=== PATIENT | male | born 1935 | race Caucasian/White ===

== ENCOUNTER 2021-10-28 00:34 | Emergency (ER) | payer OTHER, SELFPAY ==
[2021-10-28 00:35] VITALS: BP 165/91; PULSE 117; RESP 18; TEMP 36.6; O2SAT 94; BMI 29.2
--- NOTE | 2021-10-28 00:45 | ED_ITS ---
HPI - Altered Mental Status General: Chief Complaint: Altered Mental Status Stated Complaint: AMS Time Seen by Provider: 10/28/21 00:45 History of Present Illness: HPI narrative: Mr. Landrum is an 86-year-old gentleman with history of advanced dementia currently living at home on hospice who presents to the emergency department due to altered mental status. The patient at baseline has of waxing wanting mental status and only recognize his about 50% of the time. Apparently recently he has been declining further with hallucinations and agitation. Per the , via telephone, earlier today the patient was hallucinating and significantly agitated. Additionally he fell multiple times on carpet. He received lorazepam, donepezil, and 2 doses of Seroquel and then was fairly somnolent. His was unable to get him off the floor so she called hospice who recommended calling ambulance. The patient himself denies complaints however reliability is significantly limited. He is mumbling at times and provides no meaningful other history. MD complaint: altered mental status and confusion Onset (ago): day(s) Timing confirmed by: spouse Severity: moderate Consistency of symptoms: Waxing and Waning Context: other Associated symptoms: Reports auditory hallucinations and visual hallucinations Treatments prior to arrival: other Review of Systems General: Reports: ROS unobtainable due to mental status Psych: Reports: visual hallucinations and auditory hallucinations PFS ED PFSH: Medical History Dementia HTN (hypertension) Surgical History No significant past surgical history Social History Household members: spouse Housing: House Physical Exam Const: COMMON NORMALS: alert; negative for patient oriented x3 GENERAL APPEARANCE: cooperative and well developed HENMT: COMMON NORMALS: normocephalic and atraumatic HEAD & SCALP: normocephalic and atraumatic THROAT: posterior oropharynx normal Eye: COMMON NORMALS: conjunctivae normal CONJUNCTIVA: Yes conjunctivae normal SCLERA: sclerae normal Neck/C-Spine: COMMON NORMALS: supple GENERAL: Yes trachea midline Resp: COMMON NORMALS: normal respiratory effort EFFORT & INSPECTION: Yes able to speak in complete sentences Cardio: COMMON NORMALS: regular rate and regular rhythm RATE: regular rate RHYTHM: regular rhythm GI: COMMON NORMALS: Soft to palpation PALPATION: Yes Soft to palpation and No Tenderness to palpation present (GI) PERCUSSION: normal to percussion Extremity: GENERAL: Yes normal exam except as noted and No edema Neuro: COMMON NORMALS: moves all extremities; negative for patient oriented x3 SENSORIUM/ORIENTATION: Yes alert and Yes Orientation impaired Psych: MEMORY/COGNITION: Yes memory grossly impaired and Yes cognition grossly intact Course ED course: - Patient was seen and evaluated by me at bedside - Patient placed on cardiac monitors, IV access obtained - Initial evaluation notable for exam as above - Labs notable for no leukocytosis. Metabolic panel with hypokalemia, replenishment ordered. Urinalysis with bacteria though no white blood cells and no epithelial contamination which is somewhat atypical. - Imaging notable for possible pneumonia - Antibiotics ordered - Upon serial reexamination after treatment the patient was improved - Based on patient history, evaluation, labs, and imaging as interpreted the most likely cause of the patient's condition is multifactorial, likely progression of underlying severe dementia though may be mild infection contributing which we treated with antibiotics - The results of ED evaluation were discussed with the patient including prescriptions and/or symptomatic cares (if applicable) including appropriate and responsible use, followup plan, and return precautions. These were reiterated and paperwork given to the patient. - Patient discharged in satisfactory condition. Note: Click bubbles or prepopulated merlos in note writing are used for assistance with data collection and billing and are inherently more limited than narrative and other text portions of this note. Please use narrative for additional clinical history and defer to narrative/free test for any case of contradictory information. If information appears in only free text or click bubble it should be considered present or absent as reported. Please contact note ad copy writer for clarifications of clinical information or contradictory information. MDM is a brief summary, contradictory or erroneous seeming information should be clarified and full note should be reviewed. Vital Signs: Vital signs: Vital Signs Temperature 97.8 F 10/28/21 07:08 Pulse Rate 104 H 10/28/21 07:08 Respiratory Rate 18 10/28/21 07:08 Blood Pressure 190/98 10/28/21 07:08 Pulse Oximetry 95 10/28/21 07:08 MDM - Altered Mental Status MDM Narrative: Medical decision making narrative: 86-year-old gentleman presenting to the emergency department for evaluation of mental status change. Challenging situation, the patient is on hospice for end-stage dementia though still living at home. Basically, per the 's understanding, he was sent here for stabilization of behavioral issues with plan to return in the morning to home. He has been calm cooperative though clearly demented. He has never been here before and given behavioral changes certainly warranted medical evaluation. Heart rate improved with fluids. Mild electrolyte derangements including hypokalemia which was replenished. Chest x-ray notable for pneumonia and small amount of bacteria in urine. Infection may be responsible for some behavior ch anges though I suspect this is not too far off from baseline. I believe overall clinical appearance in combination with laboratory studies and clinical history that patient will gain more benefit from oral treatment of antibiotics at home rather than admission to the hospital. Medical Records: Attestation: I reviewed the patient's medical records. Lab Data: Attestation: I reviewed the patient's lab results. Labs: Lab Results 10/28/21 10/28/21 10/28/21 01:35 01:35 01:35 WBC 8.7 10^3/uL 10^3/ uL (4.0-10.0) RBC 5.45 10^6/uL H 10 ^6/uL (4.1-5.3) Hgb 14.8 g/dL g/dL (11.7-16.6) Hct 45.7 % % (42.0-52.0) MCV 83.9 fl fl (80-94) MCH 27.2 pg L pg (28.0-34.0) MCHC 32.4 g/dL g/dL (30.0-36.0) RDW 14.2 % % (12.1-15.1) Plt Count 139 10^3/cmm 10^3 /cmm (130-400) MPV 12.1 fL H fL (7.4-10.4) Neut % (Auto) 73.1 % % Lymph % (Auto) 17.7 % % [place] % (Auto) 7.3 % % Eos % (Auto) 1.1 % % Baso % (Auto) 0.6 % % Neut # (Auto) 6.36 10^3/uL 10^3 /uL (1.8-7.7) Lymph # (Auto) 1.5 10^3/uL 10^3/ uL (0.8-4.8) [place] # (Auto) 0.6 10^3/uL 10^3/ uL (0.2-0.9) Eos # (Auto) 0.1 10^3/uL 10^3/ uL (0.0-0.8) Baso # (Auto) 0.1 10^3/uL 10^3/ uL (0.0-0.1) Nucleated RBC % (a uto) 0 % % Nucleated RBCs # 0.0 /100WBC /100W BC Sodium 145 mmol/L mmol/L (136-145) Potassium 3.0 mmol/L L mmol /L (3.5-5.1) Chloride 110 mmol/L H mmol /L (98-107) Carbon Dioxide 20 mmol/L L mmol/ L (22-29) Anion Gap 18.0 (5-19) BUN 9 mg/dL mg/dL (8-23) Creatinine 0.7 mg/dL mg/dL (0.7-1.2) GFR Calculation Not Reportable Glucose 95 mg/dL mg/dL (65-115) POC Glucose Calculated Osmolal ity 298 mOsm/kg H mOs m/kg (285-295) Calcium 7.6 mg/dL L mg/dL (8.5-10.5) Total Bilirubin 0.6 mg/dL mg/dL (0.15-1.2) AST 17 U/L U/L (0-40) ALT 12 U/L U/L (0-41) Alkaline Phosphata se 60 IU/L IU/L (40-130) Total Protein 5.4 g/dL L g/dL (6.6-8.7) Albumin 3.5 g/dL g/dL (3.5-5.2) Globulin 1.9 g/dL g/dL (1.3-4.6) Procalcitonin 0.05 ng/mL ng/mL (0-0.5) Urine Color Urine Appearance Urine pH Ur Specific Gravit y Urine Protein Urine Glucose (UA) Urine Ketones Urine Blood Urine Nitrate Urine Bilirubin Prot Sulfosalicyli c Acd Urine Urobilinogen Ur Leukocyte Yeimi ase Urine RBC Urine WBC Ur Squamous Epith Cells Amorphous Sediment Urine Bacteria SARS-CoV-2 Ag (Rap id) 10/28/21 10/28/21 10/28/21 01:46 01:49 02:28 WBC RBC Hgb Hct MCV MCH MCHC RDW Plt Count MPV Neut % (Auto) Lymph % (Auto) [place] % (Auto) Eos % (Auto) Baso % (Auto) Neut # (Auto) Lymph # (Auto) [place] # (Auto) Eos # (Auto) Baso # (Auto) Nucleated RBC % (a uto) Nucleated RBCs # Sodium Potassium Chloride Carbon Dioxide Anion Gap BUN Creatinine GFR Calculation Glucose POC Glucose 103 mg/dL mg/dL (70-110) Calculated Osmolal ity Calcium Total Bilirubin AST ALT Alkaline Phosphata se Total Protein Albumin Globulin Procalcitonin Urine Color Yellow (Yellow) Urine Appearance Cloudy (CLEAR) Urine pH 8 H (5-7) Ur Specific Gravit y 1.015 (1.005-1.030) Urine Protein 1+ H (Negative) Urine Glucose (UA) Norm (Normal) Urine Ketones 2+ H (Negative) Urine Blood Trace H (Negative) Urine Nitrate Negative (Negative) Urine Bilirubin Neg (Negative) Prot Sulfosalicyli c Acd Positive (Negative) Urine Urobilinogen 1 mg/dL H mg/dL (Negative) Ur Leukocyte Yeimi ase 2+ H (Negative) Urine RBC Rare /hpf /hpf (0-2) Urine WBC 0-4 /hpf H /hpf (0-5) Ur Squamous Epith Cells 0-4 /hpf H /hpf (0-5) Amorphous Sediment 1+ /hpf /hpf Urine Bacteria 1+ /hpf H /hpf (NONE) SARS-CoV-2 Ag (Rap id) Negative (Negative) Discharge Plan Discharge Patient Disposition: Home Clinical Impression: Dementia, Altered mental status, Pneumonia, Bacteriuria Condition: Stable Discharge Orders: Discharge ED (Routine); Ordered 10/28/21 Ordered By: Gildardo Fuentes Discharge Diet: Usual diet Discharge Activity: Resume usual activity Patient Instructions: Levofloxacin (By mouth), Dehydration (ED), Hypokalemia (ED), Dementia (ED), Pneumonia (ED) Activity Restrictions/Additional Instructions: Thank you for visiting the emergency department. You were seen and evaluated for worsening mental status and agitation. The exact cause of these symptoms is likely multifactorial including baseline dementia. You were found to have pneumonia which will be treated with antibiotics. The management of any medical problem in a person with severe dementia is more complicated. Often times admission to the hospital makes dementia symptoms worse. Based on examination, laboratory findings, and history provided I believe the most prudent disposition is back home with trial of oral antibiotics. You may return to the emergency department for any reason at any time. Please follow-up with your primary care provider. Return to the emergency department for recurrent falls, worsening symptoms, shortness of breath, chest pain, or anything else that you are concerned about a feel needs emergency department evaluation. Coding Level of Care Code ED Tactical Debriefer for Graeme Hlul Exam Comprehensive
--- NOTE | 2021-10-28 00:56 | CTR_ITS ---
PROCEDURE INFORMATION: Exam: CT Cervical Spine Without Contrast Exam date and time: 10/28/2021 12:56 AM Age: 86 years old Clinical indication: Injury or trauma; Blunt trauma; Patient HX: Patient on hospice for advanced alzheimer's. Hospice states patient has had multiple falls and increasing AMS from baseline. Patient non verbal. No prior imaging at this facility. ; Additional info: AMS, ? falls TECHNIQUE: Imaging protocol: Computed tomography images of the cervical spine without contrast. Radiation optimization: All CT scans at this facility use at least one of these dose optimization techniques: automated exposure control; mA and/or kV adjustment per patient size (includes targeted exams where dose is matched to clinical indication); or iterative reconstruction. COMPARISON: CT head wo con* [id number] 10/28/2021 1:22 AM RADIATION DOSE METRICS: Total DLP (mGy-cm): 764.58 FINDINGS: Vertebrae: No acute fracture. Normal alignment. The cervical spine demonstrates marked degenerative changes at multiple levels. Soft tissues: Unremarkable. Vasculature: Large carotid artery bulb calcified atherosclerotic wall plaques greater on right than left. Lungs: Lung apices are normal. CT/CT cervical spin wo con* [id number] IMPRESSION: No acute findings.
--- NOTE | 2021-10-28 00:56 | CTR_ITS ---
PROCEDURE INFORMATION: Exam: CT Head Without Contrast Exam date and time: 10/28/2021 12:56 AM Age: 86 years old Clinical indication: Altered mental status/memory loss; Patient HX: Patient on hospice for advanced alzheimer's. Hospice states patient has had multiple falls and increasing AMS from baseline. Patient non verbal. No prior imaging at this facility. TECHNIQUE: Imaging protocol: Computed tomography of the head without contrast. Radiation optimization: All CT scans at this facility use at least one of these dose optimization techniques: automated exposure control; mA and/or kV adjustment per patient size (includes targeted exams where dose is matched to clinical indication); or iterative reconstruction. COMPARISON: No relevant prior studies available. RADIATION DOSE METRICS: Total DLP (mGy-cm): 957.12 FINDINGS: Brain: There is marked cerebral atrophy. There is marked diffuse heterogeneity of the white matter attenuation, consistent with severe chronic white matter ischemic changes. Negative for acute intracranial hemorrhage. No mass effect on the brain. No midline shift of the brain. No cerebral sulcal effacement. Left basal ganglia lacunar infarct. Cerebral ventricles: No ventriculomegaly. Paranasal sinuses: Visualized sinuses are unremarkable. No fluid levels. Mastoid air cells: Visualized mastoid air cells are well aerated. Orbital cavity: Symmetric orbits. Bones/joints: Unremarkable. No acute fracture. Soft tissues: Unremarkable. CT/CT head wo con* [id number] IMPRESSION: Negative for acute intracranial abnormality.
[2021-10-28 01:41] LABS: Basophils # 0.1 10^3/uL (0.0-0.1); Basophils % 0.6 %; Eosinophils # 0.1 10^3/uL (0.0-0.8); Eosinophils % 1.1 %; Hematocrit 45.7 % (42.0-52.0); Hemoglobin 14.8 g/dL (11.7-16.6); Lymphocytes # 1.5 10^3/uL (0.8-4.8); Lymphocytes % 17.7 %; Mean Corpuscular HGB Conc 32.4 g/dL (30.0-36.0); Mean Corpuscular Hemoglobin 27.2 pg (28.0-34.0); Mean Corpuscular Volume 83.9 fl (80-94); Mean Platelet Volume 12.1 fL (7.4-10.4); Monocytes # 0.6 10^3/uL (0.2-0.9); Monocytes % 7.3 %; Neutrophils # 6.36 10^3/uL (1.8-7.7); Neutrophils % 73.1 %; Nucleated Red Blood Cells % 0 %; Platelet Count 139 10^3/cmm (130-400); Red Blood Count 5.45 10^6/uL (4.1-5.3); Red Cell Distribution Width 14.2 % (12.1-15.1); White Blood Count 8.7 10^3/uL (4.0-10.0)
[2021-10-28 01:50] LABS: Glucose Point of Care 103 mg/dL (70-110)
[2021-10-28 02:03] LABS: Alanine Aminotransferase 12 U/L (0-41); Albumin Level 3.5 g/dL (3.5-5.2); Alkaline Phosphatase 60 IU/L (40-130); Aspartate Amino Transferase 17 U/L (0-40); Blood Urea Nitrogen 9 mg/dL (8-23); Calcium 7.6 mg/dL (8.5-10.5); Carbon Dioxide 20 mmol/L (22-29); Chloride 110 mmol/L (98-107); Globulin 1.9 g/dL (1.3-4.6); Glucose 95 mg/dL (65-115); Osmolality Calculated 298 mOsm/kg (285-295); Sodium 145 mmol/L (136-145); Total Bilirubin 0.6 mg/dL (0.15-1.2); Total Protein 5.4 g/dL (6.6-8.7)
[2021-10-28] MEDS: sodium chloride 0.9% 1,000 ML 999 ML IV (02:23)
[2021-10-28 02:38] LABS: SARS Covid-2 Antigen Negative (Negative)
--- NOTE | 2021-10-28 02:39 | XRR_ITS ---
PROCEDURE INFORMATION: Exam: XR Chest Exam date and time: 10/28/2021 2:39 AM Age: 86 years old Clinical indication: Shortness of breath; Patient HX: AMS. SOB. No prior plain films at this facility. TECHNIQUE: Imaging protocol: XR of the chest. Views: 1 view. COMPARISON: CT cervical spin wo con* [id number] 10/28/2021 1:25 AM FINDINGS: Lungs: Bilateral pulmonary opacities, worse on the left, suspicious for pneumonia. Pleural spaces: Unremarkable. No pleural effusion. No pneumothorax. Heart/Mediastinum: Unremarkable. No cardiomegaly. Bones/joints: Unremarkable. XR/XR chest 1V portable [id number] IMPRESSION: Bilateral pulmonary opacities, worse on the left, suspicious for pneumonia.
[2021-10-28] MEDS: potassium chloride oral liq 20 mEq/15 mL UDC 40 MEQ PO (02:48)
[2021-10-28 02:51] VITALS: PULSE 107; RESP 17; O2SAT 97
[2021-10-28 03:09] VITALS: BP 162/110; PULSE 107; RESP 16; O2SAT 95
[2021-10-28 03:23] LABS: Add Urine Microscopic? YES; Amorphous Sediment Urine 1+ /hpf; Bacteria Urine 1+ /hpf; Bilirubin Urine Neg (Negative); Blood Urine Trace (Negative); Glucose Urine UA Norm (Normal); Ketones Urine 2+ (Negative); Leukocyte Esterase Urine 2+ (Negative); Nitrate Urine Negative (Negative); Protein Urine 1+ (Negative); RBC Urine RARE /hpf (0-2); Specific Gravity, Urine 1.015 (1.005-1.030); Squamous Epithelial Cell Urine 0-4 /hpf (0-5); Sulfosalicylic Acid Urine Positive (Negative); Urine Appearance Cloudy (CLEAR); Urine Color Yellow (Yellow); Urobilinogen Urine 1 mg/dL (Negative); WBC Urine 0-4 /hpf (0-5); pH Urine 8 (5-7)
[2021-10-28 03:35] LABS: Procalcitonin 0.05 ng/mL (0-0.5)
[2021-10-28] MEDS: levoFLOXacin 750 mg Tablet PO (05:03)
[2021-10-28 06:04] VITALS: BP 147/83; PULSE 102; RESP 16; TEMP 36.8; O2SAT 96
--- NOTE | 2021-10-28 07:03 | PC.NURSE ---
pt bibems from home with c/o AMS. Pt had him brought in. Pt awaiting EMS transport back home. Pt resting in bed in room close to nurses station.
[2021-10-28 07:08] VITALS: BP 190/98; PULSE 104; RESP 18; TEMP 36.6; O2SAT 95
== END 2021-10-28 07:58 | disposition home or self-care (01) ==
PROVIDERS: Emergency Provider Emergency Medicine
DX: F03.90 Unspecified dementia, unspecified severity, without behavioral disturbance, psychotic disturbance, mood disturbance, and anxiety (principal); J18.9 Pneumonia, unspecified organism; R82.71 Bacteriuria; I10 Essential (primary) hypertension; Z20.822 Contact with and (suspected) exposure to COVID-19
CPT/HCPCS: 36416; 70450; 71045; 72125; 80053; 81001; 82962; 84145; 85025; 87040; 87426; 96360; 99284; J7030